=== PATIENT | male | born 1975 | race Caucasian/White ===

== ENCOUNTER 2018-11-17 20:31 | Emergency (ER) | payer OTHER ==
[~2018-11-17 20:31] MED LIST: AMOCLA875 PO; OXYACE5T PO; PROM25 PO
== END 2018-11-17 20:56 | disposition left against medical advice (07) ==
LOC: ER 20:31
DX: Z53.21 Procedure and treatment not carried out due to patient leaving prior to being seen by health care provider (principal)

== ENCOUNTER → 2020-01-21 | Outpatient (CLI) | payer OTHER | END | disposition home or self-care (01) | LOC: LAB 10:30 → LAB SHORT 10:30 | DX: R39.81 Functional urinary incontinence (principal) | CPT/HCPCS: 87086 ==